=== PATIENT | male | born 1960 | race Caucasian/White ===

== ENCOUNTER 2017-02-09 09:56 | Emergency (ER) | payer BC ==
[~2017-02-09] VITALS: Ht 172.7 cm; Wt 81.6 kg
--- NOTE | 2017-02-09 10:40 | NUR ---
SHANTEL AT BS.
--- NOTE | 2017-02-09 10:47 | NUR ---
LAB TECT AT FOR BLOOD DRAW.
[2017-02-09 10:52] LABS: BASOPHILS % (AUTO) 0.4 % (0.0-2.0); EOSINOPHILS # (AUTO) 0.3 /CMM (0.0-0.7); EOSINOPHILS % (AUTO) 4.3 % (0.0-6.0); HEMATOCRIT 41 % (39-51); HEMOGLOBIN 13.8 g/dL (13.5-17.5); LYMPHOCYTES % (AUTO) 28.3 % (20.0-44.0); MEAN CORPUSCULAR HEMOGLOBIN 33 PG (26.0-33.0); MEAN CORPUSCULAR HGB CONC 34 g/dl (31.0-36.0); MEAN CORPUSCULAR VOLUME 96 fL (80-96); MONOCYTES # (AUTO) 0.5 /CMM (0.1-1.30); MONOCYTES % (AUTO) 7.3 % (2.0-12.0); NEUTROPHILS # (AUTO) 4.1 /CMM (1.8-8.9); NEUTROPHILS % (AUTO) 59.7 % (43.0-81.0); PLATELET COUNT (AUTO) 217 /CMM (150-450); RDW COEFFICIENT OF VARIATION 13.4 (11.5-15.0); RED BLOOD CELL COUNT(AUTO) 4.26 MIL/uL (4.5-6.0); WHITE BLOOD COUNT (AUTO) 6.9 K/uL (4.3-11.0)
[2017-02-09 11:02] LABS: CALCIUM, SERUM 9.2 mg/dL (8.5-10.1); CREATININE 0.9 mg/dL (0.6-1.3); POTASSIUM 3.9 mmol/L (3.5-5.1)
[2017-02-09 11:04] LABS: APPEARANCE,URINE Clear (CLEAR); BILIRUBIN,URINE Negative (NEGATIVE); BLOOD, URINE Negative Ery/uL (NEGATIVE); COLOR,URINE Yellow (YELLOW); KETONES,URINE Negative (NEGATIVE); LEUKOCYTE ESTERASE ,URINE Negative (NEGATIVE); NITRITE, URINE Negative (NEGATIVE); PH,URINE 5.5 (5.0-8.0); PROTEIN,URINE Negative (NEGATIVE); UGLUCOSE Negative (NEGATIVE); UROBILINOGEN,URINE 0.2 EU/dL (0.2)
--- NOTE | 2017-02-09 11:27 | NUR ---
DR.BAHADORI PADILLA
--- NOTE | 2017-02-09 12:00 | NUR ---
DR. ALEXANDRA AT BS.
--- NOTE | 2017-02-09 12:23 | NUR ---
Patient discharged to home in stable condition. Written and verbal after care instructions given. Patient verbalizes understanding of instruction.
[2017-02-09 12:25] VITALS: BP 122/81
== END 2017-02-09 12:26 | disposition home or self-care (01) ==
LOC: ER 10:05
DX: M25.571 Pain in right ankle and joints of right foot (principal); I10 Essential (primary) hypertension; I25.2 Old myocardial infarction
CPT/HCPCS: 36415; 73610-TC; 80048-TC; 81000-TC; 84550-TC; 85025-TC; 85652-TC; 86140-TC; 87040-TC; A4606; Z7610